=== PATIENT | female | born 2000 | race Caucasian/White ===

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

== ENCOUNTER 2023-02-27 17:52 | Emergency (ER) | payer MEDICAID ==
[~2023-02-27] VITALS: Ht 157.5 cm; Wt 113.6 kg
[~2023-02-27 17:52] MED LIST changes: +PREDNISONE20 MG PO
[2023-02-27 18:00] VITALS: TEMP 98
[2023-02-27] MEDS ORDERED: MYCELEX10 MG/TAB MM (19:01)
[2023-02-27 19:08] VITALS: BP 143/106; PULSE 94
== END 2023-02-27 19:08 | disposition home or self-care (01) ==
LOC: COL.ER 17:52
DX: B37.0 Candidal stomatitis (principal); E11.9 Type 2 diabetes mellitus without complications; E66.9 Obesity, unspecified; Z79.4 Long term (current) use of insulin